=== PATIENT | male | born 1955 | race Caucasian/White ===

== ENCOUNTER 2023-09-27 13:41 | Outpatient (AMB) | payer MEDICARE, SELFPAY ==
--- NOTE | 2023-09-27 13:46 | A.OFFVIS_ITS ---
Intake Vital Signs 09/27/23 13:56 Weight 188 lb BP 161/80 H Blood Pressure Location Lt brachial Position Sitting Pulse 90 Intake Visit Reasons: Cyst on back of head Intake Note: This patient presents for an assessment for cyst of the head. Patient c/o; reports pain and discomfort, reports having this cyst for several years, reports no draining or discharge. [employer] Required: No Accompanied by: Self / Same As Patient Allergies No Known Allergies Allergy (Verified 09/27/23 13:54) Medication List - Last Reconciled 09/27/23 by Td Reynolds MD No Known Home Meds HPI Cyst on back of head HPI Details 67-year-old male referred for a cyst on the back of the head. He says that he has had this for ?a few years?. He states that this has been increasing in size and is becoming more bothersome. He says he rides motorcycles and wears a helmet for this so this is becoming uncomfortable. He denies any drainage or redness. [facility] Medical History (Updated 09/27/23 @ 14:05 by Td Reynolds MD) Scalp mass Surgical History History of hernia repair Social History Alcohol intake: current Patient Tobacco Use Status: Never used Tobacco Review of Systems Const Denies chills and Denies fever(s) Card Denies chest pain, Denies dyspnea and Denies dyspnea on exertion Resp Denies cough, Denies dyspnea and Denies dyspnea on exertion GI Denies hematochezia and Denies change in bowel habits Denies hematuria and Denies difficulty urinating Musc Denies back pain and Denies limited range of motion Neuro Denies focal weakness and Denies convulsions Psych Denies depression and Denies mood swings Physical Exam Vital Signs: Last Vital Signs Pulse 90 09/27/23 13:56 BP 161/80 H 09/27/23 13:56 Const General: comfortable and no acute distress Orientation/consciousness: patient oriented x3 HEENT Other: Cystic mass, subcutaneous, on the occipital area of the scalp, about 2.3 cm in diameter, well-defined, mobile, soft Neck Neck: Yes no lymphadenopathy Resp Auscultation: clear to auscultation bilaterally Cardio Rhythm: regular rhythm GI Palpation (GI): Soft to palpation, nontender and no guarding Neuro General: patient oriented x3 Assessment & Plan Assessment & Plan (1) Scalp mass: Code(s): R22.0 - Localized swelling, mass and lump, head Plan: He has a scalp mass as described above. This appears to be a cyst versus a lipoma. I explained him the technique of excision under local anesthesia. I reviewed the risks including but not limited to bleeding and infections, as well as the benefits and alternatives. He wants to proceed. This will be done at the minor procedure room. Coding Level of Care Code New Pt Level 3 (41671) Diagnoses Scalp mass R22.0
[2023-09-27 13:56] VITALS: BP 161/80; PULSE 90
== END 2023-09-27 14:03 | disposition home or self-care (01) ==
PROVIDERS: PCP Internal Medicine; Referring Provider Internal Medicine; Visit Provider Surgery
DX: R22.0 Localized swelling, mass and lump, head (principal)
CPT/HCPCS: 99203

== ENCOUNTER → 2023-09-27 13:41 | Outpatient (BNVA) | payer MEDICARE, SELFPAY | PROVIDERS: PCP Internal Medicine; Referring Provider Internal Medicine; Visit Provider Surgery | DX: R22.0 Localized swelling, mass and lump, head (principal) | CPT/HCPCS: 99202 ==

== ENCOUNTER 2023-10-13 | Outpatient (REF) | payer MEDICARE, SELFPAY ==
[2023-10-13 11:20] VITALS: BMI 26.8
[2023-10-13 11:22] VITALS: BP 149/83; PULSE 93; RESP 16; TEMP 36.3; O2SAT 96
--- NOTE | 2023-10-13 12:12 | P.OP_ITS ---
Operative Note Operative Note Date of Service: 10/13/23 Narrative: Preop diagnosis: Scalp cyst Postop diagnosis: Scalp cyst Procedure: Excision of scalp cyst under local anesthesia Surgeon: Td Reynolds MD The patient is a 67-year-old male with a large scalp cyst on the occipital area. He wanted to proceed with excision. He understood the technique of excision under local anesthesia and understood the risks, benefits, and alternatives He was brought to the minor procedure room. He was placed in prone position. The area of the cyst was prepped and draped. Lidocaine 1% was used for local anesthesia. I made an incision on the skin overlying the large cyst using blade 15. This was carried down through the full-thickness of the skin until the cyst capsule was visualized. I sharply dissected the cyst capsule off of the rest of the in the subcutaneous layer until was delivered. This was about a 2 cm diameter cyst. This contains sebaceous material I copiously irrigated the area of excision. I closed the incision with full- thickness nylon 3-0 interrupted sutures. Bacitracin dressings were applied. The procedure was then completed The patient tolerated the procedure well. There were no immediate complications. Estimated blood loss about 5 cc He was given wound care instructions.
== END 2023-10-13 00:01 | disposition home or self-care (01) ==
LOC: HO.MS
PROVIDERS: PCP Internal Medicine; Visit Provider Surgery
PROC: (CPT 11423; principal; 2023-10-13 11:30)
DX: L72.0 Epidermal cyst (principal); R22.0 Localized swelling, mass and lump, head
CPT/HCPCS: 11423; 88304

== ENCOUNTER → 2023-10-13 11:30 | Outpatient (BNV) | payer MEDICARE, SELFPAY | PROVIDERS: PCP Internal Medicine; Visit Provider Surgery | DX: L72.11 Pilar cyst (principal) | CPT/HCPCS: 11423 ==

== ENCOUNTER 2023-10-27 14:01 | Outpatient (AMB) | payer MEDICARE, SELFPAY ==
--- NOTE | 2023-10-27 14:03 | MHC.OFFVIS ---
Intake Vital Signs 10/27/23 14:11 Height 5 ft 8 in Weight 174 lb 2.643 oz BMI 26.5 BP 141/75 H Blood Pressure Location Lt brachial Position Sitting Pulse 88 Intake Visit Reasons: S/P excision scalp cyst Intake Note: This patient presents for a post-op assessment status post excision scalp cyst. Patient c/o; reports no complaints at this time. [employer] Required: No Accompanied by: Self / Same As Patient Allergies No Known Allergies Allergy (Verified 10/27/23 14:11) HPI S/P excision scalp cyst HPI Details He underwent excision of a scalp cyst under local anesthesia last 10/13/2023. He tolerated procedure well. He currently denies significant complaints. [facility] Medical History Scalp mass Surgical History History of removal of cyst (~10/13/23) History of hernia repair Social History Alcohol intake: current Patient Tobacco Use Status: Never used Tobacco Review of Systems Const Denies chills and Denies fever(s) Card Denies chest pain, Denies dyspnea and Denies dyspnea on exertion Resp Denies cough, Denies dyspnea and Denies dyspnea on exertion GI Denies hematochezia and Denies change in bowel habits Denies hematuria and Denies difficulty urinating Musc Denies back pain and Denies limited range of motion Neuro Denies focal weakness and Denies convulsions Psych Denies depression and Denies mood swings Physical Exam Vital Signs: Last Vital Signs Pulse 88 10/27/23 14:11 BP 141/75 H 10/27/23 14:11 BMI result Body Mass Index 26.5 Const General: comfortable and no acute distress HEENT Other: Excision site on the scalp is well healed, sutures intact, no evidence of infection Assessment & Plan Assessment & Plan (1) Scalp mass: Code(s): R22.0 - Localized swelling, mass and lump, head Plan: Status post excision. His path report shows a Pilar cyst. His incision is well healed. I removed his sutures. He can therefore follow up on a p.r.n. basis. Coding Level of Care Code Global (73125) Diagnoses Scalp mass R22.0
[2023-10-27 14:11] VITALS: BP 141/75; PULSE 88; BMI 26.5
== END 2023-10-27 14:14 | disposition home or self-care (01) ==
PROVIDERS: PCP Internal Medicine; Visit Provider Surgery
DX: R22.0 Localized swelling, mass and lump, head (principal)
CPT/HCPCS: 99024

== ENCOUNTER → 2023-10-27 14:01 | Outpatient (BNVA) | payer MEDICARE, SELFPAY | PROVIDERS: PCP Internal Medicine; Visit Provider Surgery | DX: R22.0 Localized swelling, mass and lump, head (principal) | CPT/HCPCS: 99212 ==